=== PATIENT | male | born 1940 | race Caucasian/White ===

== ENCOUNTER 2017-05-22 12:48 | Inpatient (IN) | payer MEDICAID ==
[~2017-05-22] VITALS: Ht 165.1 cm; Wt 65.6 kg
[2017-05-22 13:16] VITALS: BP 120/78; BMI 24.1
--- NOTE | 2017-05-22 13:32 | NUR ---
NO NOTES RECIEVED FROM [facility]. PT UNABLE TO PROVIDE HISTORY NOR QUARDS AT BEDSIDE. VALERIO CATHETER NOTED IN PLACE WITH YELLOW URINE. GUARD STATES IT WAS CHANGED OUT ON SAT THIS LAST WEEKEND. LEFT GREAT TOE WITH BLACK GANGRENE NOTED. PATIENT HAS A DIAPER IN PLACE.
[2017-05-22] MEDS ORDERED: ROCEPHIN 1 GM/D51 G1 IM (13:44)
[2017-05-22] MEDS ORDERED: MAG-OX 400 MG400 MG PO (13:45)
[2017-05-22] MEDS ORDERED: BACLOFEN10 MG PO (13:45)
[2017-05-22] MEDS ORDERED: ARTIFICIAL TEAR15 ML EACH EYE (13:46)
[2017-05-22] MEDS ORDERED: ZINC OXIDE 20 %30 GM TOPICAL (13:46)
[2017-05-22] MEDS ORDERED: FLOMAX0.4 MG PO (13:46)
[2017-05-22] MEDS ORDERED: ULTRAM50 MG PO (13:47)
[2017-05-22] MEDS ORDERED: KLOR-CON20 MEQ/PKT PO (13:48)
[2017-05-22] MEDS ORDERED: HUMULIN R100 U/ML SC (13:48)
[2017-05-22] MEDS ORDERED: ISOSORBIDE MONO30 M1 PO (13:49)
[2017-05-22] MEDS ORDERED: ELIQUIS5 MG PO (13:49)
[2017-05-22] MEDS ORDERED: GAS-X125 M1 PO (13:50)
[2017-05-22] MEDS ORDERED: PROAIR HFA8.5 GM INH (13:50)
[2017-05-22] MEDS ORDERED: COLACE100 MG PO (13:50)
[2017-05-22 14:30] LABS: BASOPHILS 0.4 % (0-2); EOSINOPHILS 1.6 % (0-7); HEMATOCRIT 35.8 % (42.0-54.0); HEMOGLOBIN 11.1 g/dL (13.5-17.5); IMMATURE GRANULOCYTES 4.2 % (0-5); LYMPHOCYTES 10.3 % (15-50); MCH 27.6 pg (26.0-34.0); MCV 89.1 fL (80.0-100.0); MEAN PLATELET VOLUME 10.6 fL (7.4-10.4); MONOCYTES 9.6 % (2-11); NEUTROPHILS 73.9 % (40-80); PLATELET COUNT 356 10x3/uL (130-400); RBC 4.02 10x6/uL (4.20-6.10); RDW 14.9 % (11.5-14.5); WBC 12.8 10x3/uL (4.8-10.8)
[2017-05-22 14:40] LABS: ANION GAP 14.9 mmol/L (8-16); CALCIUM 9.2 mg/dL (8.5-10.1); CARBON DIOXIDE 27.4 mmol/L (21.0-32.0); CREATININE - SERUM 1.2 mg/dL (0.6-1.3); POTASSIUM - SERUM 4.3 mmol/L (3.5-5.1)
[2017-05-22 16:02] VITALS: BP 130/70
--- NOTE | 2017-05-22 17:00 | NUR ---
FSBS 106. NO COVERAGE REQUIRED. SUPPER SERVED IN ROOM. REFUSED TO EAT ANYTHING GUARDS AT BEDSIDE UNABLE TO SAY WHAT HE IS LIKE NORMALLY,
--- NOTE | 2017-05-22 17:17 | NUR ---
[facility] ADMITT[facility] TO DR CAMERON. MEDICAL MANAGEMENT CONSULT. ID CONSULT. IR CONSULT FOR ARTERIOGRAM VS AFRO, IVFS AT 50 CC/HR 0.45 NS . CBC / BMP X5 DAYS. TC RECEIVED FROM PRICE Mattson/ BRENT Mattson/ [facility] AT 1715. LATONYA Ramirez WILL BE FOLLOWING THIS PATIENT PRICE IS ON VACATION. LATONYA'S CONTACT PHONE NUMBER IS [phone]. PATIENT ADMITTED THIS AFTERNOON. UPDATE PROVIDED FOR PLAN OF CARE.
--- NOTE | 2017-05-22 18:23 | NUR ---
UNABLE TO ROUSE PATIENT TO SIGN CONSENTS FOR PROCEDURE TOMMORROW. WILL MONITOR.
--- NOTE | 2017-05-22 18:30 | NUR ---
SENA THAKUR NOTIFIED OF RUN OF V TACH. NEW ORDERS TO CONSULT CARDIOLOGY. THIS WAS DONE.
[2017-05-22 20:00] VITALS: BP 118/72
--- NOTE | 2017-05-22 22:09 | NUR ---
REC'D LYING IN BED. AROUSES TO VOICE. LETHARGIC. NO DISTRESS NOTED. GUARD IS AT BEDSIDE. INSTRUCTED TO CALL IF NEEDED ANYTHING, VERBALIZED UNDERSTANDING. WILL CONT TO MONITOR. BED LOW, LOCKED CALL LIGHT IN REACH.
[2017-05-23 04:00] VITALS: BP 137/65
[2017-05-23 05:03] LABS: BASOPHILS 0.5 % (0-2); EOSINOPHILS 1.3 % (0-7); HEMATOCRIT 32.6 % (42.0-54.0); HEMOGLOBIN 10.2 g/dL (13.5-17.5); IMMATURE GRANULOCYTES 4.2 % (0-5); LYMPHOCYTES 16.3 % (15-50); MCH 27.6 pg (26.0-34.0); MCHC 31.3 g/dL (31.0-37.0); MCV 88.3 fL (80.0-100.0); MEAN PLATELET VOLUME 10.7 fL (7.4-10.4); MONOCYTES 8.1 % (2-11); NEUTROPHILS 69.6 % (40-80); PLATELET COUNT 336 10x3/uL (130-400); RBC 3.69 10x6/uL (4.20-6.10); RDW 15.1 % (11.5-14.5)
[2017-05-23 05:13] LABS: INR 2.1 (0.85-1.17)
[2017-05-23 05:14] LABS: APTT 64.3 SECONDS (22.8-39.4)
[2017-05-23 05:17] LABS: WBC 9.1 10x3/uL (4.8-10.8)
[2017-05-23 05:29] LABS: ALBUMIN 1.9 g/dL (3.4-5.0); ANION GAP 11.4 mmol/L (8-16); BILIRUBIN - TOTAL 0.3 mg/dL (0.2-1.3); CALCIUM 8.9 mg/dL (8.5-10.1); CREATININE - SERUM 1.1 mg/dL (0.6-1.3); PROTEIN - SERUM 6.3 g/dL (6.4-8.2)
[2017-05-23 05:36] LABS: POTASSIUM - SERUM 3.4 mmol/L (3.5-5.1)
--- NOTE | 2017-05-23 06:28 | NUR ---
EYES CLOSED RESPIRATIONS WITH EASE AND UNLABORED.
[2017-05-23 08:14] VITALS: BP 111/65
[2017-05-23 11:50] VITALS: Ht 165.1 cm; Wt 65.6 kg
[2017-05-23 13:19] VITALS: BP 120/50
[2017-05-23 15:43] VITALS: BP 118/60
[2017-05-23 20:00] VITALS: BP 110/46
--- NOTE | 2017-05-23 22:46 | NUR ---
REC'D LYING IN BED. ALERT AND ORIENTED X4. DENIED PAIN AT THIS TIME. ASKED WHY HIS FOOT IS SO COLD. INFORMED HIM THAT HE HAS VERY LITTLE CIRCULATION IN THE LEFT FOOT SO ITS GOING TO STAY COOLER, VERBALIZED UNDERSTANDING. INSTRUCTED TO CALL IF NEEDED ANYTHING, VERBALIZED UNDERSTANDING. BED LOW, LOCKED, CALL LIGHT IN REACH. WILL CONT TO MONITOR
[2017-05-24] VITALS (8 sets, daily range): BP systolic 87–113; BP diastolic 45–74
--- NOTE | 2017-05-24 | NUR ---
PATIENT IS RESTING QUIETLY WITH EYES CLOSED. NO SIGNS OF DISTRESS NOTED. GAURD AT BEDSIDE.
[2017-05-24 05:36] LABS: BASOPHILS 0.3 % (0-2); EOSINOPHILS 1.9 % (0-7); HEMATOCRIT 33.5 % (42.0-54.0); HEMOGLOBIN 10.8 g/dL (13.5-17.5); IMMATURE GRANULOCYTES 2.6 % (0-5); LYMPHOCYTES 19.9 % (15-50); MCH 28.5 pg (26.0-34.0); MCHC 32.2 g/dL (31.0-37.0); MCV 88.4 fL (80.0-100.0); MEAN PLATELET VOLUME 10.3 fL (7.4-10.4); MONOCYTES 8.2 % (2-11); NEUTROPHILS 67.1 % (40-80); PLATELET COUNT 344 10x3/uL (130-400); RBC 3.79 10x6/uL (4.20-6.10); RDW 15.4 % (11.5-14.5); WBC 9.9 10x3/uL (4.8-10.8)
[2017-05-24 05:42] LABS: PROTIME 19.2 SECONDS (11.6-15.0)
[2017-05-24 05:44] LABS: INR 1.67 (0.85-1.17)
[2017-05-24 05:54] LABS: ALBUMIN 1.9 g/dL (3.4-5.0); ALKALINE PHOSPHATASE 197 U/L (46-116); ALT (SGPT) 15 U/L (10-68); CALC OSMOLALITY 273 mosm/kg (275-300); CARBON DIOXIDE 27.3 mmol/L (21.0-32.0); CHLORIDE - SERUM 102 mmol/L (98-107); CREATININE - SERUM 0.7 mg/dL (0.6-1.3); GLUCOSE 99 mg/dL (74-106); PROTEIN - SERUM 6.5 g/dL (6.4-8.2); SODIUM 137 mmol/L (136-145); UREA NITROGEN 13 mg/dL (7-18); eGFR NON AFRICAN AMERICAN > 90 mL/min (90-120)
--- NOTE | 2017-05-24 08:00 | NUR ---
AWAKE AND ALERT. ORIENTED X3. NO C/O AT THIS TIME. LUNGS ARE CLEAR BIALTERALY, NO COUGH NOTED. SKIN IS INTACT WITHOUT REDNESS EXCEPT LEFT GREAT TOE AND HEELS ARE BLACKENED, PEDAL PULSE VERY FAINT. STAGE 2 TO COCCYX NOTED WITH MEPILEX DRESSING IN PLACE. IV TO RIGHT FOREARM IS PATNET WITHOUT REDNESS AT INSERTION SITE. VALERIO PATENT WITH CLEAR YELLOW URINE. DENIES NEEDS AT THIS TIME.
--- NOTE | 2017-05-24 11:30 | NUR ---
FSBS 88. PREOP MEDS GIVEN. REPORTS NO IMPROVEMENT IN PAIN LEVEL AT THIS TIME.
--- NOTE | 2017-05-24 11:41 | NUR ---
Nutrition Follow Up: Pt continues NPO and is scheduled for L great toe resection today. +BM 05/24/17. Labs reviewed. Meds noted including Reglan. Rec advancing ALONZO when medically feasible. RD following.
--- NOTE | 2017-05-24 17:00 | NUR ---
FSBS 84. NO COVERAGE.
--- NOTE | 2017-05-24 22:29 | NUR ---
REC'D BACK FROM SURGERY. ALERT AND ORIENTED X1. IS TALKATIVE. IS NOT KEEPING PULSE OX ON. IS ON 3L NC. WILL CONT TO MONITOR. GUARD AT BEDSIDE. NO DISTRESS NOTED. INSTRUCTED TO CALL IF NEEDED ANYTHING, VERBALIZED UNDERSTANDING. BED LOW, LOCKED, CALL LIGHT IN REACH.
--- NOTE | 2017-05-25 02:00 | NUR ---
PATIENT IS ALERT WATCHING TV. GAURD AT BEDSIDE. NO SIGNS OF DISTRESS NOTED. BED IN LOWEST POSITION, CALL LIGHT IN REACH. BED RIALS UP X'S 2.
[2017-05-25 05:15] LABS: BASOPHILS 0.3 % (0-2); EOSINOPHILS 2.7 % (0-7); HEMOGLOBIN 9.9 g/dL (13.5-17.5); IMMATURE GRANULOCYTES 3.4 % (0-5); MCHC 30.9 g/dL (31.0-37.0); MCV 90.4 fL (80.0-100.0); MEAN PLATELET VOLUME 10.4 fL (7.4-10.4); MONOCYTES 8.1 % (2-11); NEUTROPHILS 63.5 % (40-80); PLATELET COUNT 340 10x3/uL (130-400); RBC 3.54 10x6/uL (4.20-6.10); RDW 15.8 % (11.5-14.5); WBC 9.8 10x3/uL (4.8-10.8)
[2017-05-25 05:38] LABS: ALBUMIN 1.7 g/dL (3.4-5.0); ALKALINE PHOSPHATASE 164 U/L (46-116); CALCIUM 8.7 mg/dL (8.5-10.1); CARBON DIOXIDE 23.5 mmol/L (21.0-32.0); CHLORIDE - SERUM 103 mmol/L (98-107); CREATININE - SERUM 0.8 mg/dL (0.6-1.3); PROTEIN - SERUM 6.1 g/dL (6.4-8.2); SODIUM 135 mmol/L (136-145); UREA NITROGEN 12 mg/dL (7-18); eGFR NON AFRICAN AMERICAN > 90 mL/min (90-120)
[2017-05-25 05:40] LABS: ALT (SGPT) 9 U/L (10-68); CALC OSMOLALITY 267 mosm/kg (275-300); GLUCOSE 66 mg/dL (74-106)
--- NOTE | 2017-05-25 06:03 | NUR ---
BLOOD SUGAR THIS MORNING WAS 66, GAVE SOME APPLE JUICE AND CRACKERS
[2017-05-25 07:03] VITALS: BP 112/50
--- NOTE | 2017-05-25 07:49 | NUR ---
REPORT RECIEVED. PATIENTS IV FOUND REMOVED. SITE CLEANSED AND BANDAGE PLACED. NO OTHER COMPLAINTS AT THIS TIME. WILL CONTINUE TO MONITOR.
[2017-05-25 11:10] VITALS: BP 103/60
[2017-05-25] MEDS ORDERED: DOXYCYCLINE HY100 M2 PO (11:45)
--- NOTE | 2017-05-25 14:30 | NUR ---
PT WITHOUT DISTRESS.GUARD AT BEDSIDE
[2017-05-25 14:58] VITALS: BP 92/53
--- NOTE | 2017-05-25 18:14 | NUR ---
REPORT CALLED TO [facility]. FACILITY REQUESTED IV BE LEFT IN PLACE BUT PATIENT HAD ALREADY REMOVED IV.
--- NOTE | 2017-05-29 13:31 | EC ---
PATIENT:JOEL GILBERT DATE OF SERVICE: 05/22/17 SEX: M MEDICAL RECORD: [id number] DATE OF : 38 LOCATION:[facility] AGE OF PATIENT: 76 ADMISSION DATE: 05/22/17 REFERRING PHYSICIAN: INTERPRETING PHYSICIAN: DEVONTE MARIN MD ECHOCARDIOGRAM REPORT ECHO CHARGES 4 ECHO COMPLETE CLINICAL DIAGNOSIS: AFIB ECHOCARDIOGRAPHIC MEASUREMENTS (adult normal given) AC root (d.<3.7cm) 4.2 cm LV Septum d (<1.2 cm> 1.0 cm Valve Excursion 1.2 cm LV Septum (systole) 1.5 cm Left Atria (s.<4.0cm> 4.1 cm LVPW d(<1.2cm) 1.2 cm RV (d.<2.3cm) 4.3 cm LVPW (sytole) 1.6 cm LV diastole(<5.6CM) 6.8 cm MV E-F(>70mm/sec) cm LV systole 5.0 cm LVOT Diameter 1.4 cm MV exc.(>10mm) 1.6 cm Est.ejection fraction (50-75%) % Pericardial Effusion Y DOPPLER: LVIT cm/sec A 39.0 cm/sec E 101 cm/sec LA cm/sec RVSP 22 mmHg LVOT 77 cm/sec AOP1/2T m/s Asc. Ao 191 cm/sec RVOT cm/sec RA cm/sec PA cm/sec AV Gradient Peak 14.65mmHg AV Mean 7.53 mmHg AV Area 1.2 cm MV Gradient Peak 5.12 mmHg MV Mean 1.48 mmHg MV Area cm COMMENTS: Coating Mixer Supervisor: 2 JUAREZ ELLIS It Support Technician: 3 Dr. Miramontes TAPE# PACS DATE OF SERVICE: 05/23/2017 Adequate 2D echo, color flow, spectral Doppler, and M-mode. No LVH. LV internal dimensions are normal. Difficult to fully assess focal wall motion, atrial fibrillation, however with views present estiamte EF to be normal at 50% or better. Aortic valve sclerosis without stenosis. Doppler interrogation: Left atrium is minimally dilated at 4.1 cm. Mitral valve shows no prolapse. Mild MR. Right-sided chamber is normal. Mild TR. ECHOCARDIOGRAM REPORT [id number] JOEL GILBERT TRANSINT:[id number] Voice Confirmation ID: [id number] DOCUMENT ID: [id number] DEVONTE MARIN MD at 1331 CC: [id number] DICTATION DATE: 05/23/17 1339 COMMERCIAL ATTACHE: 05/23/17 1510 DIS IN 05/25/17 [place] [id number] [place] [id number]
--- NOTE | 2017-07-01 15:18 | OP ---
PATIENT NAME: JOEL GILBERT MEDICAL RECORD: [id number] :38 LOCATION:D[facility] ADMISSION DATE:05/22/17 SURGEON: DIAMOND CAMERON MD DATE OF OPERATION: 05/24/2017 PREOPERATIVE DIAGNOSIS: Osteomyelitis of the left great toe. POSTOPERATIVE DIAGNOSIS: Osteomyelitis of the left great toe. PROCEDURE: Left great toe and partial ray resection. SURGEON: Diamond Cameron MD ANESTHESIA: General. INTRAOPERATIVE COMPLICATIONS: None. SUMMARY OF PATHOLOGIC FINDINGS: The patient obviously had osteomyelitis of the distal phalanx of the toe with infectious material tracking back to underneath the metatarsal head. This required partial ray resection. OPERATIVE SUMMARY IN DETAIL: After obtaining the appropriate preoperative orthopedic surgery consent as well as anesthetic consultation, evaluation and clearance, the patient was brought to the operating room and placed on the operating table in supine position. After adequate general laryngeal mask airway was administered, tourniquet was placed about the proximal aspect of the left lower extremity. Left lower extremity was then prepped and draped in routine sterile fashion. Leg was elevated and exsanguinated, tourniquet inflated to 350 mmHg. Elliptical incision was made about the great toe and the incision was taken back down to the level into the junction. Infectious tissue appeared, so the incision was carried further back. At this point, the MTP joint was essentially excised and it was felt that there was further osteomyelitis in the very distal aspect of the proximal phalanx. For this reason, a small sagittal saw was used to cut obliquely up to the mid portion of the metatarsal. Copious irrigation was carried out followed it with a scalpel and curettage dissection. When it was felt that all infectious material was removed, the incision was closed with 3-0 Prolene in a standard interrupted fashion. Sterile dressings were applied. Tourniquet was deflated. The patient was awakened and taken to the recovery room in stable condition. All final needle and sponge counts were correct. TRANSINT:[id number] Voice Confirmation ID: [id number] DOCUMENT ID: [id number] DIAMOND CAMERON MD at 1518 CC: [id number] DICTATION DATE: 07/01/17 0954 MOLD YARD CRANE OPERATOR: 07/01/17 1313 DIS IN 05/25/17 [place] [id number] [place] [address]
== END 2017-05-25 19:40 | DRG 257 ==
LOC: D.MS 12:48
PROVIDERS: Emergency Medicine; General Practice; ADMIT Orthopaedic Surgery
PROC: B4201ZZ Computerized Tomography (CT Scan) of Abdominal Aorta using Low Osmolar Contrast (ICD-10-PCS; principal; 2017-05-23)
PROC: B42H1ZZ Computerized Tomography (CT Scan) of Bilateral Lower Extremity Arteries using Low Osmolar Contrast (ICD-10-PCS; 2017-05-23)
PROC: 0Y6Q0Z0 Detachment at Left 1st Toe, Complete, Open Approach (ICD-10-PCS; 2017-05-24)
DX: I70.263 Atherosclerosis of native arteries of extremities with gangrene, bilateral legs (principal); R41.0 Disorientation, unspecified; Z79.4 Long term (current) use of insulin; J44.9 Chronic obstructive pulmonary disease, unspecified; I25.10 Atherosclerotic heart disease of native coronary artery without angina pectoris; I48.91 Unspecified atrial fibrillation; I70.1 Atherosclerosis of renal artery; I77.1 Stricture of artery; E11.65 Type 2 diabetes mellitus with hyperglycemia

== ENCOUNTER 2017-07-15 08:00 | Day surgery (SDC) | payer OTHER ==
[~2017-07-15] VITALS: Ht 165.1 cm; Wt 66.2 kg
--- NOTE | ~2017-07-15 | HP ---
PATIENT: JOEL GILBERT MEDICAL RECORD: [id number] ACCOUNT: [id number] LOCATION:[facility] : 38 ADMISSION DATE: 07/15/17 HISTORY AND PHYSICAL EXAMINATION CHIEF COMPLAINT: Failure to thrive. HISTORY: The patient has dementia. He has pulled out several PICC lines. He has poor peripheral IV access. The patient has been having eating problems. I have been asked to place a PEG tube as well as place a subcutaneous port. The patient was unable to provide me with any history. ALLERGIES: PENICILLIN. MEDICATIONS: Current medications have been reviewed. His last Eliquis dose was on 07/11/2017. PAST MEDICAL AND SURGICAL HISTORY: Coronary artery disease, hypertension, history of atrial fibrillation, peripheral vascular disease, diabetes, gastroesophageal reflux, coronary stents, COPD. SOCIAL HISTORY: Nonsmoker. PHYSICAL EXAMINATION: GENERAL: The patient does not appear acutely ill. He does appear chronically ill. VITAL SIGNS: Reviewed. EARS: External ears appear normal. EYES: Extraocular movements are intact. NECK: Trachea is midline. CHEST: No intercostal retractions. PULMONARY: Nonlabored. No stridor. ABDOMEN: Nontender. IMPRESSION: 1. Poor IV access. 2. Dementia. 3. Failure to thrive. 4. Eating problems. PLAN: Plan will be EGD and PEG as well as placement of PowerPort. TRANSINT:[id number] Voice Confirmation ID: [id number] DOCUMENT ID: [id number] HISTORY AND PHYSICAL [id number] JOEL GILBERT ROBERT MD CC: [id number] DICTATION DATE: 07/15/17 1500 ULTIMATE HOOPS TRAINER: 07/15/17 1536 PRE [facility] [address] [place] [address]
--- NOTE | ~2017-07-15 | DS ---
PATIENT:JOEL GILBERT :38 MEDICAL RECORD: [id number] DISCHARGE SUMMARY ADMISSION DATE: 07/15/17 DISCHARGE DATE: PRINCIPAL DIAGNOSES: 1. Acute malnutrition. 2. Feeding problems. 3. Dementia. 4. Lack of peripheral IV access. 5. Atrial fibrillation with aberrancy. PROCEDURES: 1. Esophagogastroduodenoscopy with biopsies. 2. Placement of percutaneous endoscopic gastrostomy tube, 20 English. 3. Placement of left-sided PowerPort under fluoroscopic guidance with immediate surgeon interpretation of the fluoroscopic images. HOSPITAL COURSE: The patient underwent the above operative procedure. In the recovery room, we thought the patient might have had a run of V-tach. Dr. Zarate saw the patient in consultation. He thought that this was just atrial fibrillation with aberrancy. The patient was placed in an observation bed overnight on telemetry. He had no runs of V-tach, only AFib, which was in a controlled rate. He is being dismissed back to the nursing home. TRANSINT:[id number] Voice Confirmation ID: [id number] DOCUMENT ID: [id number] KOFFI SAHNI MD CC: [id number] DICTATION DATE: 07/16/17 0856 DAIRY DEPARTMENT MANAGER: 07/16/17 1050 REG [facility] [address] [place] [id number]
--- NOTE | ~2017-07-15 | OP ---
PATIENT NAME: JOEL GILBERT MEDICAL RECORD: [id number] :38 LOCATION:D.[facility] ADMISSION DATE: SURGEON: JET SAHNI MD DATE OF OPERATION: 07/15/2017 PREOPERATIVE DIAGNOSES: 1. Failure to thrive. 2. Eating problems. 3. Dementia. 4. Poor peripheral IV access. POSTOPERATIVE DIAGNOSES: 1. Failure to thrive. 2. Eating problems. 3. Dementia. 4. Poor peripheral IV access. 5. Mild fundal gastritis. PROCEDURES: 1. Esophagogastroduodenoscopy with antral biopsies. 2. Placement of 20-Romanian percutaneous endoscopic gastrostomy tube. 3. Placement of left infraclavicular PowerPort under fluoroscopic guidance. 4. Immediate surgeon interpretation of the fluoroscopic images. SURGEON: Jet Sahni MD CONSULTING PROJECT DIRECTOR: None. BLOOD LOSS: Minimal. ANESTHESIA: General. COMPLICATIONS: None. The risks, possible complications and alternatives to procedure were explained to the patient. A consent form had been signed. I told the patient I tried to place the PowerPort on the left, but this was unsuccessful. Then, we have to place it on the right side. OPERATIVE COURSE: The patient was conveyed to the operating room electively on 07/15/2017. General anesthesia was induced by the anesthesia staff. The chest was sterilely prepped and draped. A transverse incision was accomplished inferior to the left clavicle. Sharp dissection was carried down to the level of the pectoralis fascia. A subcutaneous pocket was created in a caudad direction. I dissected in the deltopectoral groove. I identified a generous cephalic vein. Two ties were placed on the cephalic vein laterally and a loose tie was placed medially. A small venotomy was accomplished between the ties. I advanced the PowerPort catheter. It was advanced to the cavoatrial junction. It was shortened. It was attached to the PowerPort. The locking device was firmly engaged. I then placed 2 ties around the cephalic vein medially. I divided the cephalic vein between the ties. I then sutured the PowerPort to the underlying pectoralis fascia with 3-point fixation utilizing 3-0 Prolenes to prevent the port from flipping. The port accessed easily. It flushed easily and aspirated dark, nonpulsatile blood. OPERATIVE REPORT [id number] JOEL GILBERT I irrigated in the port pocket with normal saline. The subdermis was approximated with interrupted 3-0 Vicryls. The skin was approximated with a running intracuticular 4-0 Vicryl. A sterile dressing was applied. No radiologist was present for this procedure. Static fluoroscopic images were obtained and are kept in the PACS system. The surgeon interpretation of the radiographic images is as follows. An image was obtained over the mediastinum. It revealed that the PowerPort catheter tip was at the cavoatrial junction. Another image was obtained over the left upper chest and it revealed no apparent kinking or twisting of the PowerPort catheter. A bite block was then inserted. A gastroscope was inserted into the mouth. It was advanced easily into the hypopharynx. The esophagus was easily intubated as were the stomach and duodenum. Upon withdrawal, retroflexed and angulus views were obtained. Antral biopsies were obtained. I cleansed the anterior abdominal wall skin. I indented the anterior abdominal wall in the left upper quadrant. I was able to visualize this endoscopically. A small skin kevin was accomplished. I advanced an Angiocath through the skin kevin and punctured the fundus of the stomach on the first try. A guidewire was advanced through the Angiocath. This was grasped with an endoscopic snare. The snare and wire were then withdrawn out through the mouth. The wire was attached to a pull type gastrostomy tube, which was then pulled into place. I re-endoscoped the patient's esophagus and the stomach. There had been no evidence of false passage or perforation. The endoscope was withdrawn under direct vision. Hub and flange devices were attached. The patient was then extubated and conveyed to postanesthesia care unit where he was in stable condition. They can begin using the PowerPort immediately. It will require a Dunn needle for access. The gastrostomy tube can be used for medications tonight and for insufflation of food tomorrow. TRANSINT:[id number] Voice Confirmation ID: [id number] DOCUMENT ID: [id number] JET SAHNI MD CC: [id number] DICTATION DATE: 07/15/17 1507 HOOP EXPANDER: 07/15/17 1701 PRE [facility] [address] [place] [address]
[~2017-07-15 08:00] MED LIST: ARTIFICIAL TEAR15 ML EACH EYE; BACLOFEN10 MG PO; COLACE100 MG PO; DOXYCYCLINE HY100 M2 PO; ELIQUIS5 MG PO; FLOMAX0.4 MG PO; GAS-X125 M1 PO; HUMULIN R100 U/ML SC; ISOSORBIDE MONO30 M1 PO; KLOR-CON20 MEQ/PKT PO; MAG-OX 400 MG400 MG PO; PROAIR HFA8.5 GM INH; ROCEPHIN 1 GM/D51 G1 IM; ULTRAM50 MG PO; ZINC OXIDE 20 %30 GM TOPICAL
[2017-07-15 10:03] LABS: HEMATOCRIT 28.5 % (42.0-54.0); MCH 27.3 pg (26.0-34.0); MCHC 31.6 g/dL (31.0-37.0); MCV 86.4 fL (80.0-100.0); MEAN PLATELET VOLUME 9.7 fL (7.4-10.4); RBC 3.3 10x6/uL (4.20-6.10); RDW 15.3 % (11.5-14.5); WBC 7.5 10x3/uL (4.8-10.8)
[2017-07-15] MEDS ORDERED: ZANTAC150 MG PO (10:11)
[2017-07-15] MEDS ORDERED: LUBRICANT EYE D15 M2 (10:12)
[2017-07-15] MEDS ORDERED: BACLOFEN10 MG PO (10:13)
[2017-07-15] MEDS ORDERED: ISOSORBIDE MON120 M1 PO (10:17)
[2017-07-15 10:19] LABS: CALC OSMOLALITY 270 mosm/kg (275-300); CALCIUM 8.1 mg/dL (8.5-10.1); CARBON DIOXIDE 28.6 mmol/L (21.0-32.0); CHLORIDE - SERUM 102 mmol/L (98-107); CREATININE - SERUM 0.7 mg/dL (0.6-1.3); GLUCOSE 96 mg/dL (74-106); POTASSIUM - SERUM 3.7 mmol/L (3.5-5.1); SODIUM 137 mmol/L (136-145); UREA NITROGEN 5 mg/dL (7-18); eGFR NON AFRICAN AMERICAN > 90 mL/min (90-120)
[2017-07-15 10:36] VITALS: BP 117/67; BMI 24.3
[2017-07-15 18:29] VITALS: BP 120/67; BP 95/58; BMI 24.3
[2017-07-15 21:11] VITALS: BP 97/67
[2017-07-15 21:35] LABS: ALBUMIN 1.5 g/dL (3.4-5.0); ALKALINE PHOSPHATASE 139 U/L (46-116); ALT (SGPT) 12 U/L (10-68); BILIRUBIN - TOTAL 0.32 mg/dL (0.2-1.3); CALC OSMOLALITY 273 mosm/kg (275-300); CALCIUM 7.7 mg/dL (8.5-10.1); CARBON DIOXIDE 29.1 mmol/L (21.0-32.0); CHLORIDE - SERUM 104 mmol/L (98-107); CREATININE - SERUM 0.7 mg/dL (0.6-1.3); GLUCOSE 94 mg/dL (74-106); MAGNESIUM - SERUM 1.5 mg/dL (1.8-2.4); PHOSPHOROUS 4.2 mg/dL (2.5-4.9); POTASSIUM - SERUM 3.9 mmol/L (3.5-5.1); PRE-ALBUMIN 7.6 mg/dL (18.0-35.7); PROTEIN - SERUM 4.8 g/dL (6.4-8.2); SODIUM 138 mmol/L (136-145); UREA NITROGEN 6 mg/dL (7-18); eGFR NON AFRICAN AMERICAN > 90 mL/min (90-120)
[2017-07-16 04:27] VITALS: BP 116/65
[2017-07-16 06:40] LABS: CALC OSMOLALITY 272 mosm/kg (275-300); CALCIUM 7.8 mg/dL (8.5-10.1); CARBON DIOXIDE 25.9 mmol/L (21.0-32.0); CHLORIDE - SERUM 104 mmol/L (98-107); CREATININE - SERUM 0.7 mg/dL (0.6-1.3); GLUCOSE 75 mg/dL (74-106); MAGNESIUM - SERUM 1.6 mg/dL (1.8-2.4); PHOSPHOROUS 4.4 mg/dL (2.5-4.9); POTASSIUM - SERUM 3.8 mmol/L (3.5-5.1); SODIUM 138 mmol/L (136-145); UREA NITROGEN 6 mg/dL (7-18); eGFR NON AFRICAN AMERICAN > 90 mL/min (90-120)
[2017-07-16 07:49] VITALS: Ht 165.1 cm; Wt 66.2 kg
[2017-07-16 08:36] VITALS: BP 102/60
== END 2017-07-16 11:48 | disposition home or self-care (01) ==
LOC: D.OPS 08:00 → D.M2 17:53 → D.OPS 07-16 11:48
PROVIDERS: Anesthesiology; Surgery
DX: R62.7 Adult failure to thrive (principal); F50.9 Eating disorder, unspecified; F03.90 Unspecified dementia, unspecified severity, without behavioral disturbance, psychotic disturbance, mood disturbance, and anxiety; K29.50 Unspecified chronic gastritis without bleeding; I25.10 Atherosclerotic heart disease of native coronary artery without angina pectoris; Z95.5 Presence of coronary angioplasty implant and graft; I10 Essential (primary) hypertension; I48.91 Unspecified atrial fibrillation; I73.9 Peripheral vascular disease, unspecified; E11.9 Type 2 diabetes mellitus without complications; K21.9 Gastro-esophageal reflux disease without esophagitis; J44.9 Chronic obstructive pulmonary disease, unspecified; Z79.01 Long term (current) use of anticoagulants; Z88.0 Allergy status to penicillin; Z01.812 Encounter for preprocedural laboratory examination